=== PATIENT | male | born 1980 | race Hispanic/Latino ===

== ENCOUNTER → 2020-09-04 | Outpatient (CLI) | payer OTHER | LOC: RAD 12:53 | PROVIDERS: ATTEND Ophthalmology | DX: R51.9 Headache, unspecified (principal) ==

== ENCOUNTER → 2020-09-05 | Outpatient (CLI) | payer SELFPAY | LOC: CT 13:31 | PROVIDERS: ATTEND Ophthalmology | DX: R51.9 Headache, unspecified (principal) | CPT/HCPCS: 70486 ==